=== PATIENT | male | born 1960 | race Caucasian/White ===

== ENCOUNTER → 2016-09-12 | Day surgery (SDC) | payer OTHER ==
[~2016-09-12] VITALS: Ht 165.1 cm; Wt 89.8 kg
[~2016-09-12] MED LIST: VITAMIN D350000 UNIT PO; ZOCOR10 M1 PO
--- NOTE | 2016-09-12 12:54 | Operative Report ---
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 He has failed conservative care. I recommended a left shoulder hemiarthroplasty due to his age and heavy job demands. Risks and benefits of the procedure were discussed with the patient at length. Risks include but are not limited to nerve damage, muscle damage, infection, blood loss, blood clots, pulmonary embolus, and even . The patient agreed to the above risks and elected to proceed with surgery. Operative/Procedure Note Note: The patient was placed on the operating table and general anesthesia was induced by the anesthesia team. The patient was then positioned into the beachchair position. The upper extremity was prepped and draped in the normal sterile fashion. The patient received IV antibiotics prior to incision. A timeout was performed and the site marking was visualized prior to incision. An incision was then made just lateral to the coracoid extending distally toward the axillary fold. A deltopectoral approach was then performed. Any bleeding vessels were identified and cauterized. The cephalic vein was then identified and released. It was retracted in order to get access to the deltopectoral groove. Blunt dissection was then performed to split the deltoid and pectoralis muscle tendons. Adhesions deep to the deltoid were then freed up with blunt dissection. The pectoralis major tendon was then released of the proximal third of its insertion with a Bovie. A biceps tenodesis was then performed using a #2 orthocord suture. The biceps tendon was fixed to the pectoralis major insertion. The bicipital groove was then opened with sharp dissection. The biceps tendon was followed into the shoulder joint thereby releasing the rotator interval. The Bovie was then used to perform a subscapularis tenotomy just medial to the lesser tuberosity. The subscapularis tendon was then tagged with several #2 orthocord sutures. The capsulotomy was then performed while the proximal humerus was externally rotated. This exposed the proximal humerus. The opening reamer was then used and the proximal humerus was then reamed successively until adequate chatter was obtained. The cutting guide was applied in 30 of retroversion. The cut was then made just inferior to the rotator cuff insertion and the humeral head was then sized on the back table. Any osteophytes were then removed from the proximal humerus. A broach was then used and the humerus was broached up until a stable fit was obtained. A capsular release was performed and the labrum was then resected. The final stem was then implanted. The shoulder was then trialed to ensure adequate range of motion and stability. The final humeral component was then implanted. The shoulder was reduced. The subscapularis tendon was then repaired with the #2 orthocord sutures. The rotator interval was then closed as well with #2 orthocord suture. The wound was copiously irrigated. The deltoid fascia was closed with 0 Vicryl suture. The skin was closed with 2-0 Vicryl suture and a running subcuticular 4-0 Monocryl and Dermabond. A dry sterile dressing was applied. The patient was transferred to PACU in stable condition.
== END ==
LOC: STS 01:46
DX: M19.012 Primary osteoarthritis, left shoulder (principal)
CPT/HCPCS: 88305; J0131; J0690; J1100; J2250; J2405; J2795